=== PATIENT | female | born 1980 | race Caucasian/White ===

== ENCOUNTER 2016-10-12 13:59 | Observation (INO) | payer MEDICARE, MEDICAID ==
[2016-10-12 15:32] LABS: AUTOMATED BASOPHIL 0.6 % (0-2); AUTOMATED EOSINOPHIL 0.1 % (0-5); AUTOMATED LYMPH 9.1 % (17-44); AUTOMATED MONOCYTE 3.3 % (3-10); AUTOMATED NEUTROPHIL 86.9 % (45-76); MPV 8.5 fL (7.4-10.4)
[2016-10-12 15:48] LABS: BLOOD UREA NITROGEN 29 MG/DL (7-17); CALCIUM 8.8 MG/DL (8.4-10.2); CALCULATED OSMOLALITY 277 MOs/Kg (270-290); CHLORIDE 109 mEq/L (98-107); GLUCOSE 95 MG/DL (70-99); SODIUM LEVEL 141 mEq/L (137-146); TOTAL PROTEIN 6.7 G/DL (6.3-8.2)
[2016-10-12] MEDS ORDERED: ASPIRIN (CHEWABLE) 81 MG TAB PO ONE (17:41)
--- NOTE | 2016-10-12 18:17 | DIRPT ---
CLINICAL DATA: Shortness of breath. EXAM: CHEST 2 VIEW COMPARISON: 01/28/2016 FINDINGS: Cardiomediastinal silhouette is normal. Mediastinal contours appear intact. There is no evidence of focal airspace consolidation, pleural effusion or pneumothorax. Low lung volumes with mild exaggeration of the interstitial markings. Lower lobe predominant peribronchovascular thickening may be seen with acute bronchitis or reactive airway disease. Osseous structures are without acute abnormality. Soft tissues are grossly normal. IMPRESSION: Lower lobe predominant peribronchovascular thickening, which may be seen with acute bronchitis or reactive airway disease. Electronically Signed By: Marta Fox M.D. On: 10/12/2016 18:15
[2016-10-12 18:28] LABS: RBC/URINE 0-2 (0-5); WBC/URINE 0-2 (0-5)
[2016-10-12 18:29] LABS: LEUKOCYTES/URINE NEG (NEGATIVE); NITRITE/URINE NEG (NEGATIVE); URINE OCCULT BLOOD TRACE (NEG/TRACE)
--- NOTE | 2016-10-12 18:39 | EDPRACDOC ---
[id number]: 10/12/16 17:27 Information Source: Patient Home Medications: Home Medications Mycophenolic Acid [Myfortic] 720 mg PO BID 09/10/12 Prednisone 5 mg PO DAILY 09/10/12 Tacrolimus [Prograf] 4 mg PO BID 09/10/12 Simvastatin 5 mg PO HS 12/17/12 Furosemide [Lasix] 40 mg PO DAILY 07/31/15 Medroxyprogesterone Acetate [Depo-Provera] 1 inj IM .[id number] 10/08/16 Cyclobenzaprine HCl [Flexeril] 5 mg PO HS PRN 10/12/16 Sodium Bicarbonate 20 gr PO BID 10/12/16 Acetaminophen Tablet [TYLENOL Tablet] 650 mg PO Q6H PRN #100 tablet 10/14/16 Carvedilol [Coreg] 3.125 mg PO BID #60 tablet 10/14/16 Nitroglycerin Sublingual Tab [NTG (NitroStat Sublingual Tab)] 0.4 mg SL Q5MIN PRN #30 tablet 10/14/16 Oxycodone Immediate Release [Oxycodone Immediate Release (OxyIR)] 5 mg PO Q6H PRN #30 tablet 10/14/16 Allergies/Adverse Reactions: Allergies Allergy/AdvReac Type Severity Reaction Status Date / Time sulfamethoxazole Allergy Severe Itching Verified 10/12/16 14:09 [From Bactrim] tramadol Allergy Severe Hives* Verified 10/12/16 14:09 azathioprine [From Imuran] Allergy Intermediate RASH Verified 10/12/16 14:09 azathioprine sodium Allergy Intermediate RASH Verified 10/12/16 14:09 [From Imuran] warfarin sodium Allergy Intermediate RASH Verified 10/12/16 14:09 [From Coumadin] trimethoprim [From Bactrim] Allergy Mild Itching Verified 10/12/16 14:09 adhesive Allergy Unknown Rash-Genera Verified 10/12/16 14:09 lized cephalexin [From Keflex] Allergy Hives* Verified 10/12/16 14:09 - History of Present Illness Onset: 1 WEEK HPI: PATIENT PRESENTS C/O CHEST PAIN LEFT SIDED WITH EXERTION FOR LAST FEW HOURS. DENIES PRIOR HEART DISEASE. NO FEVER. NO COUGH. PATIENT STATES SHE HAS DIABETES INSIPIDUS AND HAS HAD KIDNEY TRANSPLANT X2. LAST TRANSPLANT IN . SHE HAS HAD INCREASING CREATININE OVER THE LAST YEAR WITH LAST CR BEING 2.2. PRIOR TO TRANSPLANT PATIENT REQUIRED PROCRIT. SHE HAS ALSO NOTED A SLOW FALL IN HGB. SHE DENIES BLOODY STOOL. NO VAGINAL BLEEDING. Chest Pain Location: Reports: Left Chest Pain Radiation: Reports: None Symptoms Occur: Reports: Suddenly Cardiac Risk Factors: Reports: Family History, Hyperlipidemia, Hypertension, Diabetes PE Risk Factors: Reports: None Prehospital Care: Reports: None Pain Came On: Reports: Suddenly Pain Status: Resolved Pain Description: Reports: Pressure Pain Severity: Mild Pain Worsens With: Reports: Exertion Pain Improves With: Reports: Nothing Associated Signs and Symptoms: Reports: SOB ED Past Medical History - History Reviewed Yes Nurses notes reviewed and agree except as marked Travel Outside of [place] in the Last 3 Months?: No - Patient Medical History Cardiac History: Reports: Hypertension, Hypercholesterolemia GI/ History: Reports: Renal Failure, Kidney (Renal Surgery) (kidney transplant X2), Urinary Tract Infection Musculoskeletal History: Denies: Arthritis Psychological History: Reports: Anxiety. Denies: Depression Systemic History: Reports: Anemia (IRON DEFICIENCY), Hypothyroidism. Denies: Cancer Surgical History: Reports: Other (RENAL TRANSPLANT TIMES 2 (LAST 6 YRS AGO), BTL , AV FISTULA, THYROIDECTOMY) Date of Last Radiation Treatment: NO Date of Last Chemotherapy Date: NO - Family Medical History Reports: Hypertension (MOTHER), Cancer (M GMOTHER W COLON CA). Denies: Diabetes , Stroke, Cardiac Disorders - Social Medical History Smoking Status: Never smoker ETOH: None Substance Abuse: None Lives With: Family Lives In: Home EDM Review of Systems - Review of Systems ROS Negative Except as Marked: Yes All systems reviewed and were negative except as marked Constitutional: No Symptoms Reported. negative: Fever, Chills, Weakness, Fatigue, Loss of Appetite Eyes: No Symptoms Reported. negative: Redness, Blurred Vision, Double Vision, Discharge, Pain, Light Sensitive, Photophobia Ears: No Symptoms Reported. negative: Pain, Hearing Loss, Drainage, Ear Pulling Throat: No Symptoms Reported. negative: Pain, Swelling Nose: No Symptoms Reported. negative: Congestion, Bleeding, Discharge, Injection, Swelling, Deformity, Ecchymosis, Tender, Abrasion, Laceration Mouth: No Symptoms Reported. negative: Pain, Drooling Respiratory: Shortness of Breath. negative: Barky Cough, Brassy Cough, Cough, Hemoptysis, Wheezing Cardiovascular: Chest Pain. negative: Cyanosis, Edema, Orthopnea, Palpitations , PND, Syncope, Skin Mottling Gastrointestinal: No Symptoms Reported. negative: Pain, Constipation, Nausea, Vomiting, Diarrhea, Melena, Formula Intolerance Genitourinary: No Symptoms Reported. negative: Dysuria, Hematuria, Frequency, Discharge, Bleeding, Testicular Pain, Neurological: No Symptoms Reported. negative: Headache, Dizziness, Seizure, Numbness, Weakness, Speech Difficulty, Gait Difficulty Musculoskeletal: No Symptoms Reported. negative: Neck, Chestwall, Ribs, Back, Shoulder, Arm, Elbow, Forearm, Wrist, Hand, Pelvis, Hip, Femur, Knee, Leg, Ankle , Foot Integumentary: No Symptoms Reported. negative: Itching, Rash, Bruising, Wound Allergic/Immunologic: No Symptoms Reported. negative: Hives, Itching Hematologic: No Symptoms Reported. negative: Lymphadenopathy, Easy Bruising, Easy Bleeding Endocrine: No Symptoms Reported. negative: Weight Gain, Weight Loss Psychiatric: No Symptoms Reported. negative: Anxiety, Depression, Hallucinations, Insomnia, Suicidal - Physical Exam Constitutional: Alert (Awake), No apparent distress Oriented to: Time, Person, Place Last recorded Vital Signs: Last Vital Signs Temp 98.7 F 10/12/16 14:03 Pulse 89 10/12/16 17:38 Resp 18 10/12/16 17:38 BP 138/89 10/12/16 17:38 Pulse Ox 100 10/12/16 17:38 Oxygen Pulse Oxygen Saturation 100 O2 Device Room Air Oxygen Flow Rate Fraction of Inspired Oxygen ( FIO2) - HEENT Head: Normal ( normocephalic) Eye Exam: Normal (PERRL, EOMI, Sclera white) Oropharynx: Normal (Pharynx:Moist without exudate,Gums-no swelling) Tympanic Membrane: Normal ENT EAC: Normal TMJ: Normal Nose: No Symptoms Reported (septum midline) Neck: Normal (FROM, trachea at midline) - Respiratory/Cardiovascular Respiratory: Normal - CTA (BBS clear to auscultation without adventitious sounds ) Cardiovascular: Normal (RRR without murmur, gallop or rub) - GI Auscultation: Normal (NABS) Palpation: Normal (Soft,No rebound or guarding, non distended) Tenderness: Non tender Purcell's Sign: Negative - Musculoskeletal Back: Normal (Non-Tender) Extremities: Normal (Normal tone, Pulses 2+ No cyanosis or edema, FROM) - Integumentary Skin: Normal, Warm, Dry Lymphatics: Normal (no adenopathy) - Neurologic Memory Impaired: Normal Motor Function: Normal (Normal tone, Pulses 2+ No cyanosis or edema, FROM) Cranial Nerve: Normal (CN II-X11 intact sensation, strength 5/5) Cerebellar: Normal Mood Description: Normal Perception: Normal - Action ASA given in the ED: Yes - Results 10/14/16 03:10 10/14/16 03:10 WBC 7.7 xk/uL (3.8-10.8) 10/12/16 14:10 RBC 3.41 xM/uL (4.20-5.40) L 10/12/16 14:10 Hgb 9.1 g/dL (12.0-16.0) L 10/12/16 14:10 Hct 28.3 % (36-47) L 10/12/16 14:10 MCV 83 fL (81-99) 10/12/16 14:10 MCH 26.7 pg (27-32) L 10/12/16 14:10 MCHC 32.2 g/dl (33-36) L 10/12/16 14:10 RDW 15.8 % (11.5-14.5) H 10/12/16 14:10 Plt Count 277 xk/uL (130-400) 10/12/16 14:10 MPV 8.5 fL (7.4-10.4) 10/12/16 14:10 Neut % (Auto) 86.9 % (45-76) H 10/12/16 14:10 Lymph % (Auto) 9.1 % (17-44) L 10/12/16 14:10 [place] % (Auto) 3.3 % (3-10) 10/12/16 14:10 Eos % (Auto) 0.1 % (0-5) 10/12/16 14:10 Baso % (Auto) 0.6 % (0-2) 10/12/16 14:10 Absolute Neuts (auto) 6.62 xk/uL (1.7-8.2) 10/12/16 14:10 Absolute Lymphs (auto) 0.69 xk/uL (0.65-4.75) 10/12/16 14:10 D-Dimer Quant (PE/DVT) 413 ng/mL (<500) 10/12/16 14:10 Sodium 141 mEq/L (137-146) 10/12/16 14:10 Potassium 4.5 mEq/L (3.5-5.1) 10/12/16 14:10 Chloride 109 mEq/L (98-107) H 10/12/16 14:10 Carbon Dioxide 19 mMOL/L (22-33) L 10/12/16 14:10 Anion Gap 18 mEq/L (8-16) H 10/12/16 14:10 BUN 29 MG/DL (7-17) H 10/12/16 14:10 Creatinine 2.00 MG/DL (0.52-1.04) H 10/12/16 14:10 Estimated GFR (MDRD) 28 mL/min (>=60) L 10/12/16 14:10 Glucose 95 MG/DL (70-99) 10/12/16 14:10 Calculated Osmolality 277 MOs/Kg (270-290) 10/12/16 14:10 Calcium 8.8 MG/DL (8.4-10.2) 10/12/16 14:10 Corrected Calcium 9.0 MG/DL (8.4-10.2) 10/12/16 14:10 Total Bilirubin 0.4 MG/DL (0.2-1.3) 10/12/16 14:10 AST 18 IU/L (14-36) 10/12/16 14:10 ALT 19 IU/L (9-52) 10/12/16 14:10 Alkaline Phosphatase 50 IU/L (38-126) 10/12/16 14:10 Troponin I < 0.01 ng/mL (<.04) 10/12/16 14:10 Total Protein 6.7 G/DL (6.3-8.2) 10/12/16 14:10 Albumin 3.8 G/DL (3.5-5.0) 10/12/16 14:10 Urine Color Yellow 10/12/16 18:10 Urine Clarity Clear 10/12/16 18:10 Urine pH 7.0 (5.0-8.0) 10/12/16 18:10 Ur Specific [place] 1.010 (1.003-1.035) 10/12/16 18:10 Urine Protein Neg (NEG/TRACE) 10/12/16 18:10 Urine Glucose (UA) Neg (NEGATIVE) 10/12/16 18:10 Urine Ketones Neg (NEGATIVE) 10/12/16 18:10 Urine Occult Blood Trace (NEG/TRACE) 10/12/16 18:10 Urine Nitrite Neg (NEGATIVE) 10/12/16 18:10 Urine Bilirubin Neg (NEGATIVE) 10/12/16 18:10 Urine Urobilinogen 0.2 MG/DL (0-1) 10/12/16 18:10 Ur Leukocyte Esterase Neg (NEGATIVE) 10/12/16 18:10 Urine RBC 0-2 (0-5) 10/12/16 18:10 Urine WBC 0-2 (0-5) 10/12/16 18:10 Ur Epithelial Cells 1+ 10/12/16 18:10 Urine Bacteria Few (NEG/FEW) 10/12/16 18:10 Urine Mucus Occ (NEG/OCC) 10/12/16 18:10 Lab Results 10/12/16 10/12/16 10/12/16 18:10 14:10 14:10 WBC 7.7 RBC 3.41 L Hgb 9.1 L Hct 28.3 L MCV 83 MCH 26.7 L MCHC 32.2 L RDW 15.8 H Plt Count 277 MPV 8.5 Neut % (Auto) 86.9 H Lymph % (Auto) 9.1 L [place] % (Auto) 3.3 Eos % (Auto) 0.1 Baso % (Auto) 0.6 Absolute Neuts (auto) 6.62 Absolute Lymphs (auto) 0.69 D-Dimer Quant (PE/DVT) 413 Sodium Potassium Chloride Carbon Dioxide Anion Gap BUN Creatinine Estimated GFR (MDRD) Glucose Calculated Osmolality Calcium Corrected Calcium Total Bilirubin AST ALT Alkaline Phosphatase Troponin I Total Protein Albumin Urine Color Yellow Urine Clarity Clear Urine pH 7.0 Ur Specific [place] 1.010 Urine Protein Neg Urine Glucose (UA) Neg Urine Ketones Neg Urine Occult Blood Trace Urine Nitrite Neg Urine Bilirubin Neg Urine Urobilinogen 0.2 Ur Leukocyte Esterase Neg Urine RBC 0-2 Urine WBC 0-2 Ur Epithelial Cells 1+ Urine Bacteria Few Urine Mucus Occ 10/12/16 14:10 WBC RBC Hgb Hct MCV MCH MCHC RDW Plt Count MPV Neut % (Auto) Lymph % (Auto) [place] % (Auto) Eos % (Auto) Baso % (Auto) Absolute Neuts (auto) Absolute Lymphs (auto) D-Dimer Quant (PE/DVT) Sodium 141 Potassium 4.5 Chloride 109 H Carbon Dioxide 19 L Anion Gap 18 H BUN 29 H Creatinine 2.00 H Estimated GFR (MDRD) 28 L Glucose 95 Calculated Osmolality 277 Calcium 8.8 Corrected Calcium 9.0 Total Bilirubin 0.4 AST 18 ALT 19 Alkaline Phosphatase 50 Troponin I < 0.01 Total Protein 6.7 Albumin 3.8 Urine Color Urine Clarity Urine pH Ur Specific [place] Urine Protein Urine Glucose (UA) Urine Ketones Urine Occult Blood Urine Nitrite Urine Bilirubin Urine Urobilinogen Ur Leukocyte Esterase Urine RBC Urine WBC Ur Epithelial Cells Urine Bacteria Urine Mucus Laboratory Results - last 24 hr 10/12/16 10/12/16 10/12/16 14:10 14:10 14:10 WBC 7.7 RBC 3.41 L Hgb 9.1 L Hct 28.3 L MCV 83 MCH 26.7 L MCHC 32.2 L RDW 15.8 H Plt Count 277 MPV 8.5 Neut % (Auto) 86.9 H Lymph % (Auto) 9.1 L [place] % (Auto) 3.3 Eos % (Auto) 0.1 Baso % (Auto) 0.6 Absolute Neuts (auto) 6.62 Absolute Lymphs (auto) 0.69 D-Dimer Quant (PE/DVT) 413 Sodium 141 Potassium 4.5 Chloride 109 H Carbon Dioxide 19 L Anion Gap 18 H BUN 29 H Creatinine 2.00 H Estimated GFR (MDRD) 28 L Glucose 95 Calculated Osmolality 277 Calcium 8.8 Corrected Calcium 9.0 Total Bilirubin 0.4 AST 18 ALT 19 Alkaline Phosphatase 50 Troponin I < 0.01 Total Protein 6.7 Albumin 3.8 Urine Color Urine Clarity Urine pH Ur Specific [place] Urine Protein Urine Glucose (UA) Urine Ketones Urine Occult Blood Urine Nitrite Urine Bilirubin Urine Urobilinogen Ur Leukocyte Esterase Urine RBC Urine WBC Ur Epithelial Cells Urine Bacteria Urine Mucus 10/12/16 18:10 WBC RBC Hgb Hct MCV MCH MCHC RDW Plt Count MPV Neut % (Auto) Lymph % (Auto) [place] % (Auto) Eos % (Auto) Baso % (Auto) Absolute Neuts (auto) Absolute Lymphs (auto) D-Dimer Quant (PE/DVT) Sodium Potassium Chloride Carbon Dioxide Anion Gap BUN Creatinine Estimated GFR (MDRD) Glucose Calculated Osmolality Calcium Corrected Calcium Total Bilirubin AST ALT Alkaline Phosphatase Troponin I Total Protein Albumin Urine Color Yellow Urine Clarity Clear Urine pH 7.0 Ur Specific [place] 1.010 Urine Protein Neg Urine Glucose (UA) Neg Urine Ketones Neg Urine Occult Blood Trace Urine Nitrite Neg Urine Bilirubin Neg Urine Urobilinogen 0.2 Ur Leukocyte Esterase Neg Urine RBC 0-2 Urine WBC 0-2 Ur Epithelial Cells 1+ Urine Bacteria Few Urine Mucus Occ Laboratory Results 10/12/16 14:10 10/12/16 14:10 - EKG EKG #1 EKG Time: 14:04 -: Yes EKG interpreted by me Rate: bpm: 96 [place]: Normal Rhythm: NSR Block: None Hypertrophy: None ST: Normal - Departure Yes I personally saw and evaluated the patient. Disposition: Admit IP To This Hospital Condition: Improved Final Diagnosis: Exertional angina Anemia Qualifiers: Anemia type: other cause Other causes of anemia: chronic disease, kidney Qualified Code(s): N18.9 - Chronic kidney disease, unspecified Chronic renal failure Qualifiers: Chronic kidney disease stage: unspecified stage Qualified Code(s): N18.9 - Chronic kidney disease, unspecified Education/Counseling Given To: Patient Education/Counseling Given Regarding: Diagnosis, Treatment, Prognosis Decision to Admit Time: 20:22 Decision to admit date: 10/16/16 Decision to admit: from ED - Physician Consulted Hospitalist Time Called: 20:22 Provider Called: Estiven López [employer] Supervisor Returned Call: 20:22
--- NOTE | 2016-10-12 20:15 | DIRPT ---
CLINICAL DATA: 36-year-old female with shortness of breath. Chronic renal failure with 2 renal transplants most recently in 2007. Dialysis. Chest pain for 1 week, worse today. Initial encounter. EXAM: CT CHEST WITHOUT CONTRAST TECHNIQUE: Multidetector CT imaging of the chest was performed following the standard protocol without IV contrast. COMPARISON: Chest radiographs 1748 hours today and earlier. Chest CT with contrast 05/24/2014 FINDINGS: Major airways are patent. Improved lung volumes compared to the 2014 CT. Chronic right middle lobe bronchiectasis and scarring is stable. There are chronic alveolar calcifications in the right middle and lower lobes near the diaphragm, unchanged. The right lung otherwise is clear. Minimal left costophrenic angle alveolar calcification, otherwise the left lung is clear. No pleural or pericardial effusion. No mediastinal lymphadenopathy. Small calcifications are surgical clips about the thyroid which otherwise appears normal. No calcified atherosclerosis of the visible aorta. No axillary lymphadenopathy. Chronic [place] renal atrophy. Chronic abnormal soft tissue thickening and stranding along the right lateral con oblique abdominal musculature al fascia and the right incompletely visible but appears very similar to the 2013 comparison and at that time appeared related to the right transplant kidney. Visible non contrast liver, gallbladder, spleen, pancreas and adrenal glands are within normal limits. Grossly negative visible bowel in the upper abdomen. There is calcified atherosclerosis of the splenic artery. Diffusely sclerotic bones compatible with chronic renal osteodystrophy. No acute osseous abnormality identified. IMPRESSION: 1. No acute findings in the chest. 2. Chronic sequelae of renal failure. 3. Partially visible abdominal viscera, not significantly changed since 2013. Electronically Signed By: López Fraser M.D. On: 10/12/2016 20:12
--- NOTE | 2016-10-12 21:00 | HISTPHYS ---
- Chief Complaint chest pain and shortness of breath - History of Present Illness PRIMARY CARE PROVIDER: Nilda Bustamante MAGNETIC TAPE WINDER: Dr. Mccauley, [facility] HPI: The patient is a 36 yo woman with history of kidney transplant x 2, on immunosuppressive medications, anemia of chronic kidney disease, hypertension, hyperlipidemia, who presents with acute chest pain and dyspnea on exertion. Onset:1 week, but worse today. Duration: intermittent. Location: Substernal and just to left of sternum. Radiation: to back. Character: 9/10. Heaviness and pressure. Alleviated by: Nothing. Exacerbated by: any exertion. Now can barely walk. Associated Symptoms: Shortness of breath especially on exertion. Mild cough but no wheezing. Weight gain of about 7 lbs in 3 days, has gone down 2 lbs since. Slight swelling amanda abdomen. No fever or chills or diaphoresis. Treatments: none at home except usual medications. * Of note, the patient recently started Depo injections (started 10/04/16) at her DRUG CLERK office due to dysfunctional uterine bleeding. * She also recently received IV iron. The patient has no history of a heart murmur or heart disease. She has never had radiation treatment. - Medical History Cardiac History: Reports: Hypertension, Hypercholesterolemia GI/ History: Reports: Renal Disease (Chronic kidney disease stage 4. Per pt from diabetes insipidus.), Kidney (Renal Surgery) (kidney transplant X2), Urinary Tract Infection Musculoskeletal History: Denies: Arthritis Systemic History: Reports: Anemia (IRON DEFICIENCY and anemia of chronic kidney disease. Dr. Peterson.), Hypothyroidism (in past. Not taking synthroid currently.) . Denies: Cancer Psychological History: Reports: Anxiety. Denies: Depression OTHER HISTORY: DVT in left upper extremity in 07/2013. Treated with Xarelto but caused severe vaginal bleeding. Started Pradaxa 2012. NEPHROLOGY HISTORY: Per patient, had loss of function in both kidneys. 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 First kidney transplant 1994. Has been on dialysis in the past. Second kidney transplant 2007. No further dialysis since second kidney transplant. Fistula and graft placed in left upper extremity. History of diabetes insipidus. - Surgical History Reports: Other (RENAL TRANSPLANT x 2 (2008), AV FISTULA, PARATHYROIDECTOMY). Denies: Hysterectomy (but had tubal ligation) OTHER SURGERY Parathyroidectomy - Medictions/Allergies Allergies sulfamethoxazole [From Bactrim] Allergy (Severe, Verified 10/12/16 14:09) Itching RASH RASH tramadol Allergy (Severe, Verified 10/12/16 14:09) Hives* azathioprine [From Imuran] Allergy (Intermediate, Verified 10/12/16 14:09) RASH azathioprine sodium [From Imuran] Allergy (Intermediate, Verified 10/12/16 14:09 ) RASH warfarin sodium [From Coumadin] Allergy (Intermediate, Verified 10/12/16 14:09) RASH trimethoprim [From Bactrim] Allergy (Mild, Verified 10/12/16 14:09) Itching RASH RASH adhesive Allergy (Unknown, Verified 10/12/16 14:09) Rash-Generalized cephalexin [From Keflex] Allergy (Verified 10/12/16 14:09) Hives* Current Medication List: Reviewed Home Medications Mycophenolic Acid [Myfortic] 720 mg PO BID 09/10/12 Prednisone 5 mg PO DAILY 09/10/12 Tacrolimus [Prograf] 4 mg PO BID 09/10/12 Simvastatin 5 mg PO HS 12/17/12 Furosemide [Lasix] 40 mg PO DAILY 07/31/15 Medroxyprogesterone Acetate [Depo-Provera] 1 inj IM .[id number] 10/08/16 Cyclobenzaprine HCl [Flexeril] 5 mg PO HS PRN 10/12/16 Sodium Bicarbonate 20 gr PO BID 10/12/16 - Family History Reports: Hypertension (MOTHER), Cancer (M grandmother- colon cancer. Father: lung cancer.), Cardiac Disorders (Father may have heart disease), Other (No family history of blood clots.). Denies: Diabetes, Stroke - Social History Smoking Status: Never smoker Social History: Denies: Alcohol Use, Substance Use Disorder - Review of Systems GENERAL: No Fever, chills, or diaphoresis. Positive for fatigue/malaise. Weight gain. HEENT: No nasal discharge or bleeding. No throat pain or swelling. No eye pain or eye redness. RESPIRATORY: Shortness of breath especially on exertion. Mild cough but no wheezing. CARDIOVASCULAR: Chest pain. No palpitations. GI: Abdominal fullness. No abdominal pain, nausea, vomiting, diarrhea, constipation, or bloody stool. NEUROLOGICAL: No headache or focal weakness. INTEGUMENT: no rashes, itching, or lesions. LYMPHATIC SYSTEM: no lymph node swelling or pain. MUSCULOSKELETAL: no new pain or joint swelling. GENITOURINARY: No dysuria or hematuria. ENDOCRINE: No polyuria or polydipsia. HEME: Pardeep chronic anemia. No bleeding (except as part of menses), or easy bruising. - Physical Exam Vital Signs: Initial Vitals Temperature 98.7 F 10/12/16 14:03 Pulse Rate 103 10/12/16 14:03 Respiratory Rate 20 10/12/16 14:03 Blood Pressure 156/76 10/12/16 14:03 Pulse Oxygen Saturation 99 10/12/16 14:03 Vital Signs - 24 hr 10/12/16 10/12/16 10/12/16 14:03 17:38 18:43 Temperature 98.7 F Pulse Rate 103 89 76 Respiratory 20 18 18 Rate Blood Pressure 156/76 138/89 141/85 Pulse Oxygen 99 100 100 Saturation 10/12/16 19:37 Temperature Pulse Rate 79 Respiratory 20 Rate Blood Pressure 131/86 Pulse Oxygen 100 Saturation Weight: 63.9 kg Height: 4 feet 11 inches BMI: 28.5 - Other Exam Other Exam Findings: GENERAL: Ill-appearing, well nourished, no acute distress. HEENT: Normocephalic, atraumatic; pupils equal and round. Nares patent, without discharge or bleeding. No oropharyngeal lesions or erythema. Mucous membranes are dry. NECK: is supple, no masses, trachea midline. RESPIRATORY: Clear to auscultation bilaterally. Chest wall movements are symmetric. No use of accessory muscles to breathe. No tachypnea. Slight rales in bases. No wheezing, rhonchi. CARDIOVASCULAR: Normal S1, S2. Murmur 3/6 systolic. No rubs, or gallops. PMI non -displaced. Carotids: no carotid bruits. No bradycardia or tachycardia. DP pulses 2+ bilaterally. GI: soft, nontender, protuberant, normal active bowel sounds. No hepatosplenomegaly. INTEGUMENT: Clean, dry, and intact. No rashes. No lesions. MUSCULOSKELETAL: Moving all extremities. No cyanosis. No clubbing. Edema: none bilaterally. NEUROLOGICAL: Cranial nerves 2-12 grossly intact. Motor 5/5 throughout. Reflexes : 2+ bilaterally. Babinski: toes downgoing bilaterally. Intact Finger to nose. Sensory grossly intact to light touch. Intact rapid alternating movements bilaterally. No pronator drift. PSYCHIATRIC: Fully oriented. Normal and appropriate affect. LYMPHATIC: No cervical lymphadenopathy. No supraclavicular lymphadenopathy. - Lab Results Laboratory Results - last 24 hr 10/12/16 10/12/16 10/12/16 14:10 14:10 14:10 WBC 7.7 RBC 3.41 L Hgb 9.1 L Hct 28.3 L MCV 83 MCH 26.7 L MCHC 32.2 L RDW 15.8 H Plt Count 277 MPV 8.5 Neut % (Auto) 86.9 H Lymph % (Auto) 9.1 L [place] % (Auto) 3.3 Eos % (Auto) 0.1 Baso % (Auto) 0.6 Absolute Neuts (auto) 6.62 Absolute Lymphs (auto) 0.69 D-Dimer Quant (PE/DVT) 413 Sodium 141 Potassium 4.5 Chloride 109 H Carbon Dioxide 19 L Anion Gap 18 H BUN 29 H Creatinine 2.00 H Estimated GFR (MDRD) 28 L Glucose 95 Calculated Osmolality 277 Calcium 8.8 Corrected Calcium 9.0 Total Bilirubin 0.4 AST 18 ALT 19 Alkaline Phosphatase 50 Troponin I < 0.01 Total Protein 6.7 Albumin 3.8 Urine Color Urine Clarity Urine pH Ur Specific [place] Urine Protein Urine Glucose (UA) Urine Ketones Urine Occult Blood Urine Nitrite Urine Bilirubin Urine Urobilinogen Ur Leukocyte Esterase Urine RBC Urine WBC Ur Epithelial Cells Urine Bacteria Urine Mucus 10/12/16 18:10 WBC RBC Hgb Hct MCV MCH MCHC RDW Plt Count MPV Neut % (Auto) Lymph % (Auto) [place] % (Auto) Eos % (Auto) Baso % (Auto) Absolute Neuts (auto) Absolute Lymphs (auto) D-Dimer Quant (PE/DVT) Sodium Potassium Chloride Carbon Dioxide Anion Gap BUN Creatinine Estimated GFR (MDRD) Glucose Calculated Osmolality Calcium Corrected Calcium Total Bilirubin AST ALT Alkaline Phosphatase Troponin I Total Protein Albumin Urine Color Yellow Urine Clarity Clear Urine pH 7.0 Ur Specific [place] 1.010 Urine Protein Neg Urine Glucose (UA) Neg Urine Ketones Neg Urine Occult Blood Trace Urine Nitrite Neg Urine Bilirubin Neg Urine Urobilinogen 0.2 Ur Leukocyte Esterase Neg Urine RBC 0-2 Urine WBC 0-2 Ur Epithelial Cells 1+ Urine Bacteria Few Urine Mucus Occ - Diagnostic Findings EK beats per minute. Normal sinus rhythm. Flat T-wave in lead 3 and V6. Reviewed EKG personally. Chest x-ray, viewed personally: EXAM: CHEST 2 VIEW COMPARISON: 01/28/2016 FINDINGS: Cardiomediastinal silhouette is normal. Mediastinal contours appear intact. There is no evidence of focal airspace consolidation, pleural effusion or pneumothorax. Low lung volumes with mild exaggeration of the interstitial markings. Lower lobe predominant peribronchovascular thickening may be seen with acute bronchitis or reactive airway disease. Osseous structures are without acute abnormality. Soft tissues are grossly normal. IMPRESSION: Lower lobe predominant peribronchovascular thickening, which may be seen with acute bronchitis or reactive airway disease . CT of the chest without contrast: CLINICAL DATA: 36-year-old female with shortness of breath. Chronic renal failure with 2 renal transplants most recently in 2007. Dialysis. Chest pain for 1 week, worse today. Initial encounter. EXAM: CT CHEST WITHOUT CONTRAST TECHNIQUE: Multidetector CT imaging of the chest was performed following the standard protocol without IV contrast. COMPARISON: Chest radiographs 1748 hours today and earlier. Chest CT with contrast 05/24/2014 FINDINGS: Major airways are patent. Improved lung volumes compared to the 2014 CT. Chronic right middle lobe bronchiectasis and scarring is stable. There are chronic alveolar calcifications in the right middle and lower lobes near the diaphragm, unchanged. The right lung otherwise is clear. Minimal left costophrenic angle alveolar calcification, otherwise the left lung is clear. No pleural or pericardial effusion. No mediastinal lymphadenopathy. Small calcifications are surgical clips about the thyroid which otherwise appears normal. No calcified atherosclerosis of the visible aorta. No axillary lymphadenopathy. Chronic [place] renal atrophy. Chronic abnormal soft tissue thickening and stranding along the right lateral con oblique abdominal musculature al fascia and the right incompletely visible but appears very similar to the 2013 comparison and at that time appeared related to the right transplant kidney. Visible non contrast liver, gallbladder, spleen, pancreas and adrenal glands are within normal limits. Grossly negative visible bowel in the upper abdomen. There is calcified atherosclerosis of the splenic artery. Diffusely sclerotic bones compatible with chronic renal osteodystrophy. No acute osseous abnormality identified. IMPRESSION: 1. No acute findings in the chest. 2. Chronic sequelae of renal failure. 3. Partially visible abdominal viscera, not significantly changed since 2013. - Assessment (1) Chest pain R07.9 - CHEST PAIN, UNSPECIFIED Acute Present on Admission: Yes Qualifiers: Chest pain type: C Ischemic chest pain type: I Less likely in this 36 yo woman but she does have risk factors including chronic kidney disease, hypertension, hyperlipidemia. Rule out myocardial infarction. Plan: Obtain cardiac enzymes x 3. Place patient on telemetry. Give patient oxygen, aspirin. Give nitroglycerin, and morphine as needed for chest pain. Give statin. Stress test has been ordered for the morning. Patient has been advised, if the stress test is negative, to follow up with the primary care provider for evaluation of other potential causes of the chest pain. (2) Dyspnea on exertion R06.09 - OTHER FORMS OF DYSPNEA Acute Present on Admission: Yes Worsening over time to the point that she cannot even walk to another room without being very short of breath. Is associated with chest pain. She has chronic kidney disease and is on immunosuppressive medications. Does have a heart murmur. D-dimer is negative at 413. Plan: Cannot have CTA of chest due to CKD, and her D-dimer is negative. Continue cardiac workup. O2 by [place] prn, although saturation levels are 99-100%. Echocardiogram ordered. (3) Iron deficiency anemia D50.9 - IRON DEFICIENCY ANEMIA, UNSPECIFIED Acute Present on Admission: Yes Qualifiers: Iron deficiency anemia type: I Acute on chronic issue. Has iron deficiency anemia, anemia of blood loss from vaginal bleeding, and anemia of chronic kidney disease. Baseline Hb 11-13. Admission Hb is 9.1. Hemoccult negative in the emergency department. Recently had iron infusion. Plan: Monitor for bleeding. Monitor CBC. If Hb drops further, consider further workup. Has been seen by Dr. Peterson in the past. Consider consult if anemia worsens. (4) Kidney transplant status Z94.0 - KIDNEY TRANSPLANT STATUS Acute Present on Admission: Yes Plan: Continue immunosuppressive medications. Monitor creatinine. Avoid nephrotoxins. No IV contrast. (5) CKD (chronic kidney disease) stage 4, GFR 15-29 ml/min N18.4 - CHRONIC KIDNEY DISEASE, STAGE 4 (SEVERE) Acute Present on Admission: Yes Acute on chronic issue. Admission Cr is 2. Baseline Cr is 1.5- 1.9. Had one episode of Cr of 2.2 in 04/2016, owhterwise Cr has been below 2. Plan: Monitor Cr levels. Avoid nephrotoxins. No IV contrast. (6) Murmur R01.1 - CARDIAC MURMUR, UNSPECIFIED Acute Present on Admission: Yes Obtain echocardiogram. (7) Dysfunctional uterine bleeding N93.8 - OTHER SPECIFIED ABNORMAL UTERINE AND VAGINAL BLEEDING Chronic Present on Admission: Yes Patient recently started on Depo injections by her DRUG CLERK. Has severe vaginal bleeding at baseline. Does increase her risk for DVT/PE, but patient's D-dimer is negative. Plan: Caution with hormonal therapies. Case Care Discussed with: Patient, Nursing Staff
[2016-10-12 21:13] LABS: ABG Draw Site Left Radial; ALLEN'S TEST PASS; BEb -3.2 (+/- 2); TCO2 20.6 MMOL/L (23-27)
[2016-10-12] MEDS ORDERED: NITROGLYCERINE 0.4 MG TAB SL PRN (21:35)
[2016-10-12] MEDS ORDERED: NITROGLYCERINE 0.4 MG TAB SL ONE (21:36)
[2016-10-12] MEDS ORDERED: Vaccine Screening Complete SCH (23:00)
[2016-10-12] MEDS ORDERED: SIMVASTATIN 5 MG PO SCH (23:45)
[2016-10-12] MEDS ORDERED: CYCLOBENZAPRINE 5 MG TAB PO PRN (23:51)
[2016-10-13] MEDS: TACROLIMUS 1 MG CAP PO SCH ×3 (00:07→20:57)
[2016-10-13] MEDS: SIMVASTATIN 10 MG TAB PO SCH ×3 (00:08→17:32)
[2016-10-13] MEDS: SODIUM BICARBONATE 650 MG (10 GR) TAB PO SCH ×3 (00:08→20:57)
[2016-10-13] MEDS: MYCOPHENOLIC ACID 360 MG TAB PO SCH ×3 (00:08→20:56)
[2016-10-13] MEDS ORDERED: NITROGLYCERINE 0.4 MG TAB SL PRN (00:57)
[2016-10-13] MEDS ORDERED: MORPHINE 2 MG/ML INJECTION IV PRN (00:57)
[2016-10-13] MEDS ORDERED: Pharmacy Order Set Alert SCH (01:00)
[2016-10-13] MEDS ORDERED: BISACODYL 5 MG TAB PO PRN (03:34)
[2016-10-13] MEDS ORDERED: ONDANSETRON HCL 4 MG/2 ML VIAL IV PRN (03:34)
[2016-10-13] MEDS ORDERED: SENNA CONCENTRATE TAB PO PRN (03:34)
[2016-10-13] MEDS ORDERED: TEMAZEPAM 15 MG CAP PO PRN (03:34)
[2016-10-13] MEDS ORDERED: PROMETHAZINE 25 MG/ML VIAL IV PRN (03:34)
[2016-10-13] MEDS ORDERED: BENZONATATE 100 MG PERLES PO PRN (03:34)
[2016-10-13] MEDS ORDERED: Docusate Sodium 100 MG CAP PO PRN (03:34)
[2016-10-13] MEDS ORDERED: ACETAMINOPHEN 325 MG SUPP PR PRN (03:34)
[2016-10-13] MEDS ORDERED: SIMETHICONE 80 MG TAB PO PRN (03:34)
[2016-10-13] MEDS ORDERED: GUAIFEN 100 MG-DEXTROMETH 10 MG PER 5 ML PO PRN (03:34)
[2016-10-13] MEDS ORDERED: ACETAMINOPHEN 325 MG/TAB TABLET PO PRN (03:34)
[2016-10-13 04:14] LABS: MPV 8.7 fL (7.4-10.4)
[2016-10-13 04:27] LABS: BLOOD UREA NITROGEN 30 MG/DL (7-17); CALCIUM 8.9 MG/DL (8.4-10.2); CALCULATED OSMOLALITY 277 MOs/Kg (270-290); CHLORIDE 110 mEq/L (98-107); GLUCOSE 105 MG/DL (70-99); SODIUM LEVEL 141 mEq/L (137-146)
[2016-10-13 04:54] LABS: hTSH 1.23 uIU/mL (0.5-4.67)
[2016-10-13] MEDS: OXYCODONE HCL 5 MG TABLET PO PRN ×2 (08:56→17:29)
[2016-10-13] MEDS: PREDNISONE 5 MG TAB PO SCH (08:57)
[2016-10-13] MEDS: ASPIRIN 325 MG TAB PO SCH (08:57)
[2016-10-13] MEDS: FUROSEMIDE 40 MG TAB PO SCH (08:57)
--- NOTE | 2016-10-13 10:17 | GENMEDPROG ---
Chief Complaint: chest pain, dyspnea on exertion, anemia of chronic kidney dz, CKD-5 (s/p renal transplant x2) Current Medication List: Reviewed Currently: Reports: KRISHNA, SOB, Tobacco Use/Hx, Ambulating. Denies: Chest Pain DVT Prophylaxis: Yes - Physical Examination Vital Signs and I&O: Last Vital Signs Temp 98.4 F 10/13/16 07:28 Pulse 72 10/13/16 09:15 Resp 16 10/13/16 07:28 BP 120/77 10/13/16 07:28 Pulse Ox 98 10/13/16 07:28 Oxygen Pulse Oxygen Saturation 98 O2 Device Room Air Oxygen Flow Rate 2 Fraction of Inspired Oxygen ( FIO2) Intake & Output 10/10/16 10/11/16 10/12/16 10/13/16 23:59 23:59 23:59 23:59 Patient's weight 64.909 kg General: Alert, Oriented x3, Cooperative, No acute distress HEENT: Normal, PERRLA, EOMI, Anicteric Sclera, Mucous membr. moist/pink Neck: Non-tender, Full range of motion, Normal Trachea alignment, Normal inspection, No Masses palpable, No Thyromegaly palpable Lymphatics: Normal (no adenopathy) Respiratory: Normal - CTA (BBS clear to auscultation without adventitious sounds ) Cardiovascular: Regular rate and rhythm, Normal S1, Normal S2 GI: Normal bowel sounds, Soft, Non tender, No masses, Other (currently on menstrual cycle) Extremities/Musculoskeletal: Normal pulses, DJD, FROM Skin: Warm,Dry and Intact, No rashes, No breakdown, No significant lesion Neurological: Normal Steady Gait, Normal speech, Strength at 5/5 X4 ext, Normal tone, Cranial nerves 3-12 NL Psych/Mental Status: Appropriate, Normal Affect, Cooperative Lab/DI/Studies Reviewed: Laboratory Tests 10/12/16 10/13/16 10/13/16 21:07 03:25 03:25 WBC Hgb Hct RDW Plt Count Puncture Site Left radial pH 7.440 pCO2 29.0 L pO2 98.0 HCO3 19.7 L Total CO2 20.6 L Base Excess -3.2 L FiO2 % 21 Sodium 141 Potassium 3.9 Chloride 110 H Carbon Dioxide 22 Anion Gap 13 BUN 30 H Creatinine 1.80 H Estimated GFR (MDRD) 31 L Glucose 105 H Calculated Osmolality 277 Calcium 8.9 Troponin I Triglycerides 95 Cholesterol 124 LDL Cholesterol, Calc 64.0 VLDL Cholesterol, Calc 19.0 HDL Cholesterol 41.0 Cholesterol/HDL Ratio 3.0 TSH 1.23 10/13/16 10/13/16 10/13/16 03:25 09:25 12:10 WBC 6.6 Hgb 8.0 L D Hct 24.5 L RDW 15.5 H Plt Count 225 Puncture Site pH pCO2 pO2 HCO3 Total CO2 Base Excess FiO2 % Sodium Potassium Chloride Carbon Dioxide Anion Gap BUN Creatinine Estimated GFR (MDRD) Glucose Calculated Osmolality Calcium Troponin I < 0.01 < 0.01 Triglycerides Cholesterol LDL Cholesterol, Calc VLDL Cholesterol, Calc HDL Cholesterol Cholesterol/HDL Ratio TSH 10/13/16 15:25 WBC Hgb Hct RDW Plt Count Puncture Site pH pCO2 pO2 HCO3 Total CO2 Base Excess FiO2 % Sodium Potassium Chloride Carbon Dioxide Anion Gap BUN Creatinine Estimated GFR (MDRD) Glucose Calculated Osmolality Calcium Troponin I < 0.01 Triglycerides Cholesterol LDL Cholesterol, Calc VLDL Cholesterol, Calc HDL Cholesterol Cholesterol/HDL Ratio TSH ECHO: CONCLUSIONS 1. Left ventricular systolic function is hyperdynamic with an estimated EF of > 70%. 2. No regional wall motion abnormalities were noted. 3. The right ventricle is normal in size and function. 4. The left atrium is normal in size. 5. Mild tricuspid regurgitation present. 6. There is no evidence of pulmonary hypertension. 7. The pericardium is normal. Electronically Signed By: Mariusz Li MD, [facility] Electronically Signed On: 13:42:21 Copy to: DiannaNilda~ 10/13/[address]: IMPRESSION: 1. No acute findings in the chest. 2. Chronic sequelae of renal failure. 3. Partially visible abdominal viscera, not significantly changed since 2013. Electronically Signed By: López Fraser M.D. On: 10/12/2016 20:12 V/Q Scan: IMPRESSION: Normal ventilation/ perfusion scan. No ventilation or perfusion defects. Electronically Signed By: Christopher Shahid M.D. On: 10/13/2016 13:10 - Assessment (1) Anemia Acute D64.9 - ANEMIA, UNSPECIFIED Qualifiers: Anemia type: other cause Iron deficiency anemia type: I Vitamin B12 deficiency anemia type: V Folate deficiency anemia type: F Bone marrow failure anemia type: B Hemolytic anemia type: H Other causes of anemia: acute posthemorrhagic Qualified Code(s): D62 - Acute posthemorrhagic anemia Comment/Plan: Avoid transfusion for hemoglobin greater than 7.5. Currently she is 8.0. Will continue to monitor, and transfuse if she continues to drop. Consult LANE ATTENDANT to consider uterine ablation if bleeding is unresponsive to medical intervention. She is on Depo-Provera at present. (2) Chest pain Acute R07.9 - CHEST PAIN, UNSPECIFIED Qualifiers: Chest pain type: precordial pain Ischemic chest pain type: I Qualified Code(s): R07.2 - Precordial pain Comment/Plan: Less likely in this 36 yo woman but she does have risk factors including chronic kidney disease, hypertension, hyperlipidemia. Rule out myocardial infarction. Plan: Obtain serial troponins x 3. Place patient on telemetry. Obtain stress echo or simple echo to look for wall motion defects. Rule out pulmonary embolus also. Give patient oxygen, aspirin. Give nitroglycerin, and morphine as needed for chest pain. Give statin. Stress test has been ordered for the morning. Patient has been advised, if the stress test is negative, to follow up with the primary care provider for evaluation of other potential causes of the chest pain. (3) Dyspnea on exertion Acute R06.09 - OTHER FORMS OF DYSPNEA Comment/Plan: Worsening over time to the point that she cannot even walk to another room without being very short of breath. Is associated with chest pain. She has chronic kidney disease and is on immunosuppressive medications. Does have a heart murmur. D-dimer is negative at 413. Plan: Cannot have CTA of chest due to CKD, and her D-dimer is negative. Continue cardiac workup. O2 by [place] prn, although saturation levels are 99-100%. Echocardiogram ordered. (4) Chronic kidney disease, stage V Acute N18.5 - CHRONIC KIDNEY DISEASE, STAGE 5 Comment/Plan: Patient has had renal transplant twice, and her current graft is functioning at the level of Stage 3 disease, so she has progressive loss of graft function. (5) Dehydration Acute E86.0 - DEHYDRATION Comment/Plan: Gentle hydration with IV fluids. (6) Nausea and vomiting Acute R11.2 - NAUSEA WITH VOMITING, UNSPECIFIED Comment/Plan: Antiemetics as needed. (7) Kidney transplant status Acute Z94.0 - KIDNEY TRANSPLANT STATUS Comment/Plan: Plan:Continue immunosuppressive medications. Monitor creatinine. Avoid nephrotoxins. No IV contrast.
[2016-10-13] MEDS ORDERED: ALBUMIN, AGGREGATED 5 MCI V IV ONE (10:53)
[2016-10-13] MEDS ORDERED: XENON-133 10 MCI INHALATION INH ONE (10:53)
--- NOTE | 2016-10-13 13:13 | DIRPT ---
CLINICAL DATA: Shortness of breath, chest pain EXAM: NUCLEAR MEDICINE VENTILATION AND PERFUSION SCAN TECHNIQUE: Perfusion images were obtained in multiple projections after intravenous injection of radiopharmaceutical. Sequential dynamic ventilation images were obtained in standard planar projections following inhalation of radiopharmaceutical. RADIOPHARMACEUTICALS: 9.4 mCi Xe 133 and 5.5 mCi Tc99m MAA IV COMPARISON: Chest x-ray 10/12/2016 FINDINGS: No ventilation defects are noted on ventilation images. No segmental perfusion defects are noted. Chest x-ray shows no infiltrate or pulmonary edema. Mild bronchitic changes are noted. IMPRESSION: Normal ventilation/ perfusion scan. No ventilation or perfusion defects. Electronically Signed By: Christopher Shahid M.D. On: 10/13/2016 13:10
--- NOTE | 2016-10-13 13:50 | CAPUECHO ---
INDICATION: MURMUR, KRISHNA, KIDNEY TRANSPLANT, CHEST PAIN HEIGHT: 147.3 cm (4 ft 10.0 in) WEIGHT: 64.0 kg (141.0 lbs) BP: 116/70 BSA: 1.758218 m MEASUREMENTS 2D RVIDd: 2.9 cm LVOT Diam: 1.9 cm LA Diam: 3.2 cm EF Biplane: 68.91 % LAESV MOD A4C: 29.6 ml LAESV MOD A2C: 37.4 ml LAESV Index (A-L): 24.14 ml/m M-MODE IVSd: 1.1 cm LVIDd: 4.9 cm LVPWd: 0.8 cm LVIDs: 2.7 cm EF(Teich): 76 % Ao Diam: 2.6 cm LA Diam: 3.6 cm DOPPLER MV E Yasmani: 1.01 m/s MV A Yasmani: 0.87 m/s MV PHT: 55.27 ms MVA By PHT: 3.98 cm LVOT Vmax: 1.46 m/s AV Vmax: 1.76 m/s BHARAT Vmax, Pt: 2.26 cm TR Vmax: 2.39 m/s TR maxP mmHg RVSP: 35.55 mmHg FINDINGS ------- Procedure:2D images, m-mode, color and spectral Doppler were obtained and reviewed. ECG rhythm:Sinus rhythm. Study quality:This was a technically adequate study. Left Ventricle:The left ventricular size is normal. Left ventricular wall thickness is normal. T here is normal global left ventricular contractility. Left ventricular systolic function is hyperd ynamic with an estimated EF of >70%. The diastolic filling pattern is normal for the age of the pa tient. No regional wall motion abnormalities were noted. Right Ventricle:The right ventricle is normal in size and function. Left Atrium:The left atrium is normal in size. Right Atrium:The right atrium is normal in size and function. Aortic Valve:The aortic valve is trileaflet, and appears structurally normal. No aortic stenosis or regurgitation. Mitral Valve:Normal appearing mitral valve. No mitral regurgitation. Tricuspid Valve:The tricuspid valve appears structurally normal. Mild tricuspid regurgitation pres ent. There is no evidence of pulmonary hypertension. The right ventricular systolic pressure, as measured by Doppler, is 36mmHg. Pulmonic Valve:The pulmonic valve is normal. There is no pulmonic regurgitation present. Aorta:The aortic root, ascending aorta and aortic arch appear normal. IVC:Normal inferior vena cava with normal inspiratory collapse. Pericardium:The pericardium is normal. CONCLUSIONS 1. Left ventricular systolic function is hyperdynamic with an estimated EF of >70%. 2. No regional wall motion abnormalities were noted. 3. The right ventricle is normal in size and function. 4. The left atrium is normal in size. 5. Mild tricuspid regurgitation present. 6. There is no evidence of pulmonary hypertension. 7. The pericardium is normal. Electronically Signed By: Mariusz Li MD, FACC Electronically Signed On: 13:42:21
[2016-10-13] MEDS: ENOXAPARIN 40 MG/0.4 ML PFS SQ SCH ×2 (17:29→17:32)
[2016-10-14 03:52] LABS: MPV 8.7 fL (7.4-10.4)
[2016-10-14 04:19] LABS: BLOOD UREA NITROGEN 31 MG/DL (7-17); CALCIUM 8.5 MG/DL (8.4-10.2); CALCULATED OSMOLALITY 273 MOs/Kg (270-290); CHLORIDE 106 mEq/L (98-107); GLUCOSE 105 MG/DL (70-99); SODIUM LEVEL 138 mEq/L (137-146)
[2016-10-14 05:17] VITALS: BMI 29.0
[2016-10-14] MEDS: TACROLIMUS 1 MG CAP PO SCH (08:55)
[2016-10-14] MEDS: SODIUM BICARBONATE 650 MG (10 GR) TAB PO SCH (08:56)
[2016-10-14] MEDS: MYCOPHENOLIC ACID 360 MG TAB PO SCH (08:56)
[2016-10-14] MEDS: PREDNISONE 5 MG TAB PO SCH (08:56)
[2016-10-14] MEDS: ASPIRIN 325 MG TAB PO SCH (08:56)
[2016-10-14] MEDS: FUROSEMIDE 40 MG TAB PO SCH (08:56)
--- NOTE | 2016-10-14 10:30 | CAPUEKG ---
[place] Test Date: 2016-10-13 Pat Name: JOVANNY MARTINEZ Department: Room: 436 Gender: Female Molecular Biologist: : Requested By: Order Number: Reading MD: Chris Ngo MD Measurements Intervals [place] Rate: 73 P: 38 WV: 140 QRS: 27 QRSD: 78 T: 53 QT: 384 QTc: 423 Interpretive Statements Normal sinus rhythm Normal ECG Electronically Signed On 10-14-16 10:29:48 EST by Chris Ngo MD <[id number]> [id number]
--- NOTE | 2016-10-14 10:57 | GENMEDPROG ---
Currently: Reports: KRISHNA, SOB, Tobacco Use/Hx, Ambulating. Denies: Chest Pain DVT Prophylaxis: Yes - Physical Examination Vital Signs and I&O: Last Vital Signs Temp 98.9 F 10/14/16 08:00 Pulse 78 10/14/16 10:00 Resp 16 10/14/16 08:00 BP 127/69 10/14/16 08:00 Pulse Ox 97 10/14/16 08:00 Oxygen Pulse Oxygen Saturation 97 O2 Device Room Air Oxygen Flow Rate 2 Fraction of Inspired Oxygen ( FIO2) Intake & Output 10/11/16 10/12/16 10/13/16 10/14/16 23:59 23:59 23:59 23:59 Intake Total 720 Balance 720 Patient's weight 64.909 kg 65.181 kg General: Alert, Oriented x3, Cooperative, No acute distress HEENT: Normal, PERRLA, EOMI, Anicteric Sclera, Mucous membr. moist/pink Neck: Non-tender, Full range of motion, Normal Trachea alignment, Normal inspection, No Masses palpable, No Thyromegaly palpable Lymphatics: Normal (no adenopathy) Respiratory: Normal - CTA (BBS clear to auscultation without adventitious sounds ) Cardiovascular: Regular rate and rhythm, Normal S1, Normal S2 GI: Normal bowel sounds, Soft, Non tender, No masses, Other (currently on menstrual cycle) Extremities/Musculoskeletal: Normal pulses, DJD, FROM Skin: Warm,Dry and Intact, No rashes, No breakdown, No significant lesion Neurological: Normal Steady Gait, Normal speech, Strength at 5/5 X4 ext, Normal tone, Cranial nerves 3-12 NL Psych/Mental Status: Appropriate, Normal Affect, Cooperative Lab/DI/Studies Reviewed: ECHO: CONCLUSIONS 1. Left ventricular systolic function is hyperdynamic with an estimated EF of > 70%. 2. No regional wall motion abnormalities were noted. 3. The right ventricle is normal in size and function. 4. The left atrium is normal in size. 5. Mild tricuspid regurgitation present. 6. There is no evidence of pulmonary hypertension. 7. The pericardium is normal. Electronically Signed By: Mariusz Li MD, [facility] Electronically Signed On: 13:42:21 Copy to: Nilda Bustamante~ 10/13/16 1350 - Assessment (1) Anemia Acute D64.9 - ANEMIA, UNSPECIFIED Qualifiers: Anemia type: other cause Iron deficiency anemia type: I Vitamin B12 deficiency anemia type: V Folate deficiency anemia type: F Bone marrow failure anemia type: B Hemolytic anemia type: H Other causes of anemia: chronic disease, kidney Qualified Code(s): N18.9 - Chronic kidney disease, unspecified; D63.1 - Anemia in chronic kidney disease Comment/Plan: Avoid transfusion for hemoglobin greater than 7.5. Currently she is 8.2. Will continue to monitor, and transfuse if she continues to drop. Consult MORTGAGE LOAN ORIGINATOR to consider uterine ablation if bleeding is unresponsive to medical intervention. She is on Depo-Provera at present. (2) Chest pain Resolved R07.9 - CHEST PAIN, UNSPECIFIED Qualifiers: Chest pain type: precordial pain Ischemic chest pain type: I Qualified Code(s): R07.2 - Precordial pain Comment/Plan: Less likely in this 36 yo woman but she does have risk factors including chronic kidney disease, hypertension, hyperlipidemia. Rule out myocardial infarction. Plan: Obtain serial troponins x 3. Place patient on telemetry. Obtain stress echo or simple echo to look for wall motion defects. Rule out pulmonary embolus also. Give patient oxygen, aspirin. Give nitroglycerin, and morphine as needed for chest pain. Give statin. Stress test has been ordered for the morning. Patient has been advised, if the stress test is negative, to follow up with the primary care provider for evaluation of other potential causes of the chest pain. (3) Dyspnea on exertion Acute R06.09 - OTHER FORMS OF DYSPNEA Comment/Plan: Worsening over time to the point that she cannot even walk to another room without being very short of breath. PATIENT IS CURRENTLY FREE OF CHEST PAIN She has chronic kidney disease and is on immunosuppressive medications. She has been able to ambulate in the hallways without shortnes of breath or distress. Does have a heart murmur. D-dimer is negative at 413.V/Q scan is normal, 3 troponins are normal. Plan: Cannot have CTA of chest due to CKD, and her D-dimer is negative. Continue cardiac workup. O2 by [place] prn, although saturation levels are 99-100%. Echocardiogram ordered. (4) Chronic kidney disease, stage V Acute N18.5 - CHRONIC KIDNEY DISEASE, STAGE 5 Comment/Plan: Patient has had renal transplant twice, and her current graft is functioning at the level of Stage 3 disease, so she probably has some underlying vascular disease. (5) Dehydration Acute E86.0 - DEHYDRATION Comment/Plan: Gentle hydration with IV fluids. (6) Nausea and vomiting Acute R11.2 - NAUSEA WITH VOMITING, UNSPECIFIED Comment/Plan: Antiemetics as needed. (7) Kidney transplant status Acute Z94.0 - KIDNEY TRANSPLANT STATUS Comment/Plan: Plan:Continue immunosuppressive medications. Monitor creatinine. Avoid nephrotoxins. No IV contrast.
--- NOTE | 2016-10-14 11:28 | PCM.DCS92 ---
- Final/Secondary Discharge Diagnosis (1) Anemia Acute D64.9 - ANEMIA, UNSPECIFIED Present on Admission: Yes other cause [facility] chronic disease, kidney N18.9 - Chronic kidney disease, unspecified; D63.1 - Anemia in chronic kidney disease Comment: Avoid transfusion for hemoglobin greater than 7.5. Currently she is 8.2. Will continue to monitor, and transfuse if she continues to drop. Consult PUBLIC RELATIONS CONSULTANT to consider uterine ablation if bleeding is unresponsive to medical intervention. She is on Depo-Provera at present. (2) Chest pain Resolved R07.9 - CHEST PAIN, UNSPECIFIED Present on Admission: Yes precordial pain I R07.2 - Precordial pain Comment: Less likely in this 36 yo woman but she does have risk factors including chronic kidney disease, hypertension, hyperlipidemia. Rule out myocardial infarction. Plan: Obtain serial troponins x 3. Place patient on telemetry. Obtain stress echo or simple echo to look for wall motion defects. Rule out pulmonary embolus also. Give patient oxygen, aspirin. Give nitroglycerin, and morphine as needed for chest pain. Give statin. Stress test has been ordered for the morning. Patient has been advised, if the stress test is negative, to follow up with the primary care provider for evaluation of other potential causes of the chest pain. (3) Dyspnea on exertion Acute R06.09 - OTHER FORMS OF DYSPNEA Present on Admission: Yes Comment: Worsening over time to the point that she cannot even walk to another room without being very short of breath. PATIENT IS CURRENTLY FREE OF CHEST PAIN She has chronic kidney disease and is on immunosuppressive medications. She has been able to ambulate in the hallways without shortnes of breath or distress. Does have a heart murmur. D-dimer is negative at 413.V/Q scan is normal, 3 troponins are normal. Plan: Cannot have CTA of chest due to CKD, and her D-dimer is negative. Continue cardiac workup. O2 by [place] prn, although saturation levels are 99-100%. Echocardiogram ordered. (4) Chronic kidney disease, stage V Acute N18.5 - CHRONIC KIDNEY DISEASE, STAGE 5 Present on Admission: Yes Comment: Patient has had renal transplant twice, and her current graft is functioning at the level of Stage 3 disease, so she probably has some underlying vascular disease. (5) Dehydration Acute E86.0 - DEHYDRATION Present on Admission: Yes Comment: Gentle hydration with IV fluids. (6) Nausea and vomiting Acute R11.2 - NAUSEA WITH VOMITING, UNSPECIFIED Present on Admission: Yes Comment: Antiemetics as needed. (7) Kidney transplant status Acute Z94.0 - KIDNEY TRANSPLANT STATUS Present on Admission: Yes Comment: Plan:Continue immunosuppressive medications. Monitor creatinine. Avoid nephrotoxins. No IV contrast. Discharge Disposition: Home Discharge Condition: Improved Cognitive Discharge Status: Unimpaired Fuctional Discharge Status: Independent Physician Follow up/Referrals: Jenaro Zelaya MD [Staff Physician] - Hospital to call w/ appt. Mario Mccauley MD [Staff Physician] - Hospital to call w/ appt. Nilda Bustamante PA [Primary Care Provider] - 10/23/16 11:30 am Home Medications / New Prescriptions: New Acetaminophen Tablet [TYLENOL Tablet] 650 mg PO Q6H PRN #100 tablet PRN Reason: Mild Pain Or Fever Above 100.4 Carvedilol [Coreg] 3.125 mg PO BID #60 tablet Nitroglycerin Sublingual Tab [NTG (NitroStat Sublingual Tab)] 0.4 mg SL Q5MIN PRN #30 tablet PRN Reason: Chest Pain Or Discomfort Oxycodone Immediate Release [Oxycodone Immediate Release (OxyIR)] 5 mg PO Q6H PRN #30 tablet PRN Reason: Moderate To Severe Pain Continue Prednisone 5 mg PO DAILY Mycophenolic Acid [Myfortic] 720 mg PO BID Tacrolimus [Prograf] 4 mg PO BID Simvastatin 5 mg PO HS Furosemide [Lasix] 40 mg PO DAILY Medroxyprogesterone Acetate [Depo-Provera] 1 inj IM .[id number] Cyclobenzaprine HCl [Flexeril] 5 mg PO HS PRN PRN Reason: Muscle Spasms Sodium Bicarbonate 20 gr PO BID Discharge Home Medication List Mycophenolic Acid [Myfortic] 720 mg PO BID 09/10/12 [History Confirmed 10/12/16 Last Taken 10/12/16 08:00] Prednisone 5 mg PO DAILY 09/10/12 [History Confirmed 10/12/16 Last Taken ] Tacrolimus [Prograf] 4 mg PO BID 09/10/12 [History Confirmed 10/12/16 Last Taken 10/12/16 08:00] Simvastatin 5 mg PO HS 12/17/12 [History Confirmed 10/12/16 Last Taken 10/11/16] Furosemide [Lasix] 40 mg PO DAILY 07/31/15 [History Confirmed 10/12/16 Last Taken 10/12/16] Medroxyprogesterone Acetate [Depo-Provera] 1 inj IM .[id number] 10/08/16 [History Confirmed 10/12/16 Last Taken 09/03/16] Cyclobenzaprine HCl [Flexeril] 5 mg PO HS PRN 10/12/16 [History Confirmed Last Taken 10/09/16] Sodium Bicarbonate 20 gr PO BID 10/12/16 [History Confirmed 10/12/16 Last Taken 10/12/16 08:00] Acetaminophen Tablet [TYLENOL Tablet] 650 mg PO Q6H PRN #100 tablet 10/14/16 [ Rx Last Taken Unknown] Carvedilol [Coreg] 3.125 mg PO BID #60 tablet 10/14/16 [Rx Last Taken Unknown] Nitroglycerin Sublingual Tab [NTG (NitroStat Sublingual Tab)] 0.4 mg SL Q5MIN PRN #30 tablet 10/14/16 [Rx Last Taken Unknown] Oxycodone Immediate Release [Oxycodone Immediate Release (OxyIR)] 5 mg PO Q6H PRN #30 tablet 10/14/16 [Rx Last Taken Unknown] O2 Device: Room Air Additional Instructions: Watershed Coordinator from Dr Mccauley's office will call with appointment Diet at Discharge: Other (renal diet) Activity: As Tolerated Call Office For: Worsening Symptoms, Fever over 101 F, Pain Uncontrolled By Meds Discontinue use of:: Alcohol, All Illegal Substances, All Types of Tobacco - DC Summary Notes Hospital Course Note:: Discharge summary on patient named JOVANNY MARTINEZ admitted to [facility] on 10/12/16 by Estiven López MD. Date of discharge is [10/14/16]. The patient is a 36 yo woman with history of kidney transplant x 2, on immunosuppressive medications, anemia of chronic kidney disease, hypertension, hyperlipidemia, who presents with acute chest pain and dyspnea on exertion. Onset:1 week, but worse today. Duration: intermittent. Location: Substernal and just to left of sternum. Radiation: to back. Character: 9/10. Heaviness and pressure. The patient was admitted to the telemetry floor. She had three sets of troponins done in serial fashion, that were all negative for acute myocardial infarction. The racing secretary did not feel comfortable giving nuclear contrast and doing a stress test on this patient due to her renal failure and anemia, therefore, she had a transthoracic echocardiogram done, which did not show any wall motion abnormalities at rest. She had a normal LVEF. Her hemoglobin is stable at 8.2 g/dL. She did receive IV fluids, after which her chest pain resolved, and she has been able to ambulate in the hallways without distress. She is troubled by heavy vaginal bleeding, but is being followed by her PUBLIC RELATIONS CONSULTANT doctor for this, Dr. Zelaya who is trying to boost her progestin level with Depo-Provera.Will discharge home today, patient is to keep appointments with her electronics technology instructor and irrigationist designer as scheduled. Total Time: 25 Code: 68241 - Physical Exam Vital Signs: Last Vital Signs Temp 98.9 F 10/14/16 08:00 Pulse 78 10/14/16 10:00 Resp 16 10/14/16 08:00 BP 127/69 10/14/16 08:00 Pulse Ox 97 10/14/16 08:00 Oxygen Pulse Oxygen Saturation 97 O2 Device Room Air Oxygen Flow Rate 2 Fraction of Inspired Oxygen ( FIO2) Constitutional: Alert (Awake), No apparent distress Oriented to: Time, Person, Place - HEENT Head: Normal ( normocephalic) Eye: Normal (PERRL, EOMI, Sclera white) Oropharynx: Normal (Pharynx:Moist without exudate,Gums-no swelling) Tympanic Membrane: Normal ENT EAC: Normal TMJ: Normal Nose: No Symptoms Reported (septum midline) - Respiratory/Cardiovascular Respiratory: Normal - CTA (BBS clear to auscultation without adventitious sounds ) - GI Auscultation: Normal (NABS) Palpation: Normal (Soft,No rebound or guarding, non distended) Tenderness: Non tender Purcell's Sign: Negative Rectal Exam: Deferred - Musculoskeletal Back: Normal (Non-Tender) Extremities: Normal (Normal tone, Pulses 2+ No cyanosis or edema, FROM) - Integumentary Skin: Warm, Dry, Pale Lymphatics: Normal (no adenopathy) - Neurologic Memory Impaired: Normal Motor Function: Normal Cranial Nerve: Normal Cerebellar: Normal Mood Description: Normal Thought: Coherent Perception: Normal - Other Exam Other Exam Findings: Laboratory Tests 10/14/16 10/14/16 03:10 03:10 WBC 7.2 Hgb 8.2 L Hct 25.4 L Plt Count 230 Sodium 138 Potassium 4.0 Chloride 106 Carbon Dioxide 21 L Anion Gap 15 BUN 31 H Creatinine 1.90 H Estimated GFR (MDRD) 30 L Glucose 105 H Calculated Osmolality 273 Calcium 8.5
[2016-10-14 13:17] VITALS: BP 112/69; PULSE 80; TEMP 98.4
== END 2016-10-14 15:02 | disposition home or self-care (01) ==
LOC: ED 13:59 → PCU 20:53
PROVIDERS: ADMIT Internal Medicine; ATTEND Family Medicine
DX: I12.0 Hypertensive chronic kidney disease with stage 5 chronic kidney disease or end stage renal disease (principal); D63.1 Anemia in chronic kidney disease; R07.2 Precordial pain; E86.0 Dehydration; N18.5 Chronic kidney disease, stage 5; Z86.39 Personal history of other endocrine, nutritional and metabolic disease; Z94.0 Kidney transplant status; E78.5 Hyperlipidemia, unspecified; Z79.52 Long term (current) use of systemic steroids; Z79.899 Other long term (current) drug therapy; R06.09 Other forms of dyspnea; R11.2 Nausea with vomiting, unspecified; Z86.718 Personal history of other venous thrombosis and embolism
CPT/HCPCS: 36415; 36600; 71020; 71250; 78582; 80048; 80053; 80061; 81001; 82803; 84443; 84484; 85025; 85027; 85379; 86850; 86900; 86901; 86920; 93005; 96372; 99284; A9270; A9540; A9558; C8929; G0378; J1650; 93306; J3490